=== PATIENT | female | born 1945 | race Caucasian/White ===

== ENCOUNTER 2023-12-09 02:20 | Emergency (ER) | payer BC, MEDICARE ==
[2023-12-09] MEDS ORDERED: HYDROcodone/Acetaminophen 5/325 mg Tablet ONE (02:51)
[2023-12-09] MEDS ORDERED: Morphine 4 MG/ML VIAL ONE (04:05)
[2023-12-09] MEDS ORDERED: Lidocaine 4% Patch TD SCH (07:30)
[2023-12-09] MEDS ORDERED: Transdermal Patch Removal TOP SCH (20:00)
== END 2023-12-09 07:49 | disposition home or self-care (01) ==
LOC: EDBD 02:20 → ERS 02:20
DX: S70.02XA Contusion of left hip, initial encounter (principal); M62.830 Muscle spasm of back; I10 Essential (primary) hypertension; W18.30XA Fall on same level, unspecified, initial encounter
CPT/HCPCS: 72131; 96372; J2270